=== PATIENT | female | born 1945 | race Caucasian/White ===

== ENCOUNTER 2020-06-12 19:59 | Emergency (ER) | payer OTHER ==
[~2020-06-12 19:59] MED LIST: CARDIZEM30 MG PO; CARDIZEM60 MG PO; CENTRUM SILVER1 EAC4 PO; DIAZEPAM 5MG TAB5 MG PO; FLECAINIDE ACET50 MG PO; IRON325 M1 PO; KEFLEX250 MG PO; LASIX40 MG PO; LIPITOR 10MG TA10 MG PO; NEURONTIN300 MG PO; NORVASC5 MG PO; POTASSIUM CHLO10 MEQ PO; PROBIOTIC1 EAC1 PO; SERTRALINE HCL25 MG PO; SYMBICORT 80-10.2 GM INH; SYNTHROID25 MCG PO; TESSALON PERLE100 M1 PO; TRAZODONE 100M100 MG PO; XARELTO10 MG PO
[2020-06-12 21:04] LABS: BASOPHIL 1.1 % (0-2); EOSINOPHIL 2.6 % (0-7); HCT 45.6 % (37.0-47.0); HGB 14.6 g/dl (12.5-16.0); LYMPHOCYTE 25.1 % (15-48); MCH 30.5 pg (25.0-31.0); MCV 95.2 fL (78.0-100.0); MONOCYTE 10.3 % (0-12); MPV 10.4 fL (6.0-9.5); NEUTROPHIL 60.5 % (41-80); NRBC 0; PLT 331 K/uL (150-400); RBC 4.79 M/uL (4.20-5.40); RDW 13.8 % (11.5-14.0); WBC 7.3 K/uL (4.0-10.5)
[2020-06-12 21:22] LABS: ALBUMIN 3.8 g/dL (3.4-5.0); BILIRUBIN - TOTAL 0.3 mg/dL (0.2-1.0); BUN/CREAT RATIO (CALC) 16.2 RATIO; CREATININE 0.8 mg/dL (0.51-0.95); GLOBULIN (CALCULATION) 2.7 g/dL; POTASSIUM 2.9 mmol/L (3.5-5.1); TOTAL PROTEIN 6.5 g/dL (6.4-8.2)
== END 2020-06-12 22:31 | disposition home or self-care (01) ==
LOC: FER 19:59
PROVIDERS: Emergency Medicine
DX: S01.01XA Laceration without foreign body of scalp, initial encounter (principal); I48.91 Unspecified atrial fibrillation; F10.129 Alcohol abuse with intoxication, unspecified; Z95.0 Presence of cardiac pacemaker; Z79.01 Long term (current) use of anticoagulants; W19.XXXA Unspecified fall, initial encounter; Y92.009 Unspecified place in unspecified non-institutional (private) residence as the place of occurrence of the external cause; Y90.8 Blood alcohol level of 240 mg/100 ml or more; Z79.899 Other long term (current) drug therapy
CPT/HCPCS: 36415; 70450; 72125; 80053; 84484; 85025; 93005; G0480

== ENCOUNTER 2020-09-15 10:44 | Emergency (ER) | payer OTHER | END 2020-09-15 13:46 | disposition home or self-care (01) | LOC: FER 10:44 | DX: S13.4XXA Sprain of ligaments of cervical spine, initial encounter (principal); S00.03XA Contusion of scalp, initial encounter; S60.222A Contusion of left hand, initial encounter; S60.221A Contusion of right hand, initial encounter; I10 Essential (primary) hypertension; Z95.0 Presence of cardiac pacemaker; W10.9XXA Fall (on) (from) unspecified stairs and steps, initial encounter; Y92.009 Unspecified place in unspecified non-institutional (private) residence as the place of occurrence of the external cause | CPT/HCPCS: 70450; 72125 ==

== ENCOUNTER 2022-02-10 23:54 | Emergency (ER) | payer OTHER ==
[2022-02-11 00:56] LABS: BASOPHIL 0.7 % (0-2); EOSINOPHIL 2.4 % (0-7); HCT 42.7 % (37.0-47.0); HGB 13.5 g/dl (12.5-16.0); MCH 28.6 pg (25.0-31.0); MCHC 31.6 g/dL (32.0-36.0); MCV 90.5 fL (78.0-100.0); MONOCYTE 4.2 % (0-12); MPV 9.8 fL (6.0-9.5); NRBC 0; PLT 375 K/uL (150-400); RBC 4.72 M/uL (4.20-5.40); RDW 14.9 % (11.5-14.0); WBC 13.7 K/uL (4.0-10.5)
[2022-02-11 01:18] LABS: ALBUMIN 3.5 g/dL (3.4-5.0); BILIRUBIN - TOTAL 0.4 mg/dL (0.2-1.0); BUN/CREAT RATIO (CALC) 13.1 RATIO; CREATININE 0.84 mg/dL (0.51-0.95); GLOBULIN (CALCULATION) 3.2 g/dL; POTASSIUM 3.7 mmol/L (3.5-5.1); TOTAL PROTEIN 6.7 g/dL (6.4-8.2)
[2022-02-11 02:55] LABS: BILIRUBIN NEGATIVE (NEGATIVE); BLOOD NEGATIVE Ery/uL (NEGATIVE); CLARITY CLEAR (CLEAR); COLOR YELLOW (YELLOW); GLUCOSE (U) NORMAL (NORMAL); LEUKOCYTES 1+ Leu/uL (NEGATIVE); NITRITE NEGATIVE (NEGATIVE); PROTEIN NEGATIVE (NEGATIVE); SPECIFIC GRAVITY <=1.005 (1.001-1.030); UROBILINOGEN 0.2 mg/dL (0.2-1.0)
[2022-02-11 03:05] LABS: AMORPHOUS URATES CRYSTALS TRACE; BACTERIA 1+
[2022-02-11] MEDS ORDERED: NORCO 5-325 TA1 EACH PO (03:18)
[2022-02-11] MEDS ORDERED: ONDANSETRON ODT4 MG PO (03:48)
== END 2022-02-11 03:44 | disposition home or self-care (01) ==
LOC: FER 23:54
PROVIDERS: Emergency Medicine
DX: S22.42XA Multiple fractures of ribs, left side, initial encounter for closed fracture (principal); S51.812A Laceration without foreign body of left forearm, initial encounter; I10 Essential (primary) hypertension; I48.91 Unspecified atrial fibrillation; Z79.01 Long term (current) use of anticoagulants; Z88.0 Allergy status to penicillin; W01.0XXA Fall on same level from slipping, tripping and stumbling without subsequent striking against object, initial encounter; Y92.009 Unspecified place in unspecified non-institutional (private) residence as the place of occurrence of the external cause
CPT/HCPCS: 36415; 70450; 71250; 80053; 81001; 84484; 85025; 93005; 94010; J1885